=== PATIENT | female | born 1940 | race Caucasian/White ===

== ENCOUNTER → 2018-04-13 | Outpatient (CLI) | payer BC | LOC: M.MRI 13:05 | DX: G25.2 Other specified forms of tremor (principal); F41.9 Anxiety disorder, unspecified ==

== ENCOUNTER → 2019-11-15 | Outpatient (CLI) | payer BC ==
[2019-11-15 21:06] LABS: IgA 360 mg/dL (64-422); IgG 785 mg/dL (700-1600); IgM 72 mg/dL (26-217)
[2019-11-17 05:10] LABS: ANA INTERPRETATION Negative (Negative)
== END ==
LOC: M.LAB 13:47
PROVIDERS: Psychiatry & Neurology Neuromuscular Medicine
DX: R25.1 Tremor, unspecified (principal); R20.2 Paresthesia of skin

== ENCOUNTER → 2020-07-21 | Outpatient (CLI) | payer BC | LOC: M.ULTRA 12:38 | DX: I73.9 Peripheral vascular disease, unspecified (principal) ==

== ENCOUNTER → 2020-11-17 | Outpatient (CLI) | payer BC | LOC: M.MRI 11-13 13:30 | PROVIDERS: ATTEND Psychiatry & Neurology Neuromuscular Medicine | DX: R27.0 Ataxia, unspecified (principal) ==